=== PATIENT | female | born 1960 | race Caucasian/White ===

== ENCOUNTER 2017-07-08 14:41 | Observation (INO) | payer BC ==
[~2017-07-08] VITALS: Ht 160 cm; Wt 86.8 kg
[2017-07-08] MEDS ORDERED: IOHEXOL 350 MG/ML 10 ML VIAL (for RAD DIAG) IVCONTRAST ONE (14:42)
[2017-07-08 14:51] VITALS: BP 182/95; PULSE 77; RESP 20; TEMP 97.4; O2SAT 99
--- NOTE | 2017-07-08 15:50 | RADRPT ---
EXAM DATE/TIME: 07/08/2017 15:41 [facility] COMPARISON: No previous studies available for comparison. INDICATIONS : Chest pain. MEDICAL HISTORY : Carcinoma, breast. SURGICAL HISTORY : Mastectomy, bilateral. ENCOUNTER: Initial ACUITY: 1 day PAIN SCORE: 10/10 LOCATION: Bilateral chest FINDINGS: PA and lateral views of the chest demonstrate the lungs to be symmetrically aerated without evidence of mass, infiltrate or effusion. The cardiomediastinal contours are unremarkable. Osseous structure s are intact. Postsurgical changes each breast. CONCLUSION: No acute disease. Venakt Barroso MD on July 08, 2017 at 15:48 Board Certified Radiologist. This report was verified electronically.
[2017-07-08 15:53] LABS: AUTOMATED NEUTROPHIL # 12.4 TH/MM3 (1.8-7.7); BASOPHIL % 0.1 % (0.0-2.0); HEMATOCRIT 38.3 % (35.0-46.0); HEMOGLOBIN 13.1 GM/DL (11.6-15.3); LYMPH % 3.2 % (9.0-44.0); LYMPHOCYTE # 0.4 TH/MM3 (1.0-4.8); MEAN CORPUSCULAR HEMOGLOBIN 31.1 PG (27.0-34.0); MEAN CORPUSCULAR HGB CONC 34.2 % (32.0-36.0); MEAN PLATELET VOLUME 8.7 FL (7.0-11.0); MONO % 7.7 % (0.0-8.0); MONOCYTE # 1.1 TH/MM3 (0-0.9); PLATELET COUNT 233 TH/MM3 (150-450); RED BLOOD COUNT 4.21 MIL/MM3 (4.00-5.30); RED CELL DISTRIBUTION WIDTH 12.3 % (11.6-17.2); WHITE BLOOD COUNT 13.9 TH/MM3 (4.0-11.0)
[2017-07-08 16:03] LABS: BICARBONATE 28.7 MEQ/L (21.0-32.0); BLOOD UREA NITROGEN 11 MG/DL (7-18); CALCIUM 9.7 MG/DL (8.5-10.1); CHLORIDE 104 MEQ/L (98-107); CREATININE 0.66 MG/DL (0.50-1.00); GLOMERULAR FILTRATION RATE 93 ML/MIN (>89); GLUCOSE,RANDOM 114 MG/DL (74-106); MAGNESIUM 2.1 MG/DL (1.5-2.5); SODIUM (NA) 140 MEQ/L (136-145)
[2017-07-08 16:06] LABS: INTERNATIONAL NORMALIZED RATIO 0.9 RATIO; PROTHROMBIN TIME - PATIENT 9.3 SEC (9.8-11.6)
[2017-07-08 16:08] LABS: TROPONIN I LESS THAN 0.02 NG/ML (0.02-0.05)
[2017-07-08] MEDS ORDERED: MEDR4PAK PO (16:27)
[2017-07-08] MEDS ORDERED: LORA0.5T PO (16:27)
--- NOTE | 2017-07-08 16:56 | PD ---
HPI Chief Complaint: Pain: Acute or Chronic Time Seen by Provider: 16:44 Travel History International Travel<30 days: No Contact w/Intl Traveler<30days: No Traveled to known affect area: No History of Present Illness HPI This is a 56-year-old female with history of breast cancer status post bilateral mastectomy in February 2017, begin radiation treatments a few weeks ago, had her 18th treatment yesterday, presents for evaluation. She reports that she developed pain in her right axilla 3 days ago which she describes as a stabbing pain. The pain radiates in the middle of her chest which describes it as a pressure. Pain is worse with movement. She denies nausea or vomiting, shortness of breath, cough congestion, fevers or chills. Her oncologist is Dr. Araujo. No other complaints. PFSH Past Medical History Autoimmune Disease: No Blood Disorders: No Cancer: Yes (breast) Psychiatric: No Influenza Vaccination: Yes Past Surgical History AICD: No Genitourinary Surgery: No Hysterectomy: Yes Pacemaker: No Other Surgery: Yes (bilat mastectomy) Social History Alcohol Use: Yes (socially) Tobacco Use: No Substance Use: No Allergies-Medications (Allergen,Severity, Reaction): Coded Allergies: Sulfa (Sulfonamide Antibiotics) (Unverified Allergy, Mild, 07/08/17) Reported Meds & Prescriptions Reported Meds & Active Scripts Active Reported Medrol Dosepak (Methylprednisolone) 4 Mg Dspk 4 Mg PO DIRECTED Per Pharmacist direction Lorazepam 0.5 Mg Tab 0.5 Mg PO BID PRN Review of Systems Except as stated in HPI: all other systems reviewed are Neg Physical Exam Narrative GENERAL: Well-developed well-nourished female no acute distress SKIN: Warm and dry. There is a large area of skin redness just medial to the right axilla which is quite tender to palpation. There is no fluctuance or drainage. HEAD: Atraumatic. Normocephalic. EYES: Pupils equal and round. No scleral icterus. No injection or drainage. ENT: No nasal bleeding or discharge. Mucous membranes pink and moist. NECK: Trachea midline. No JVD. CARDIOVASCULAR: Regular rate and rhythm. No murmur appreciated. RESPIRATORY: No accessory muscle use. Clear to auscultation. Breath sounds equal bilaterally. GASTROINTESTINAL: Abdomen soft, non-tender, nondistended. Hepatic and splenic margins not palpable. MUSCULOSKELETAL: No obvious deformities. No clubbing. No cyanosis. No edema. NEUROLOGICAL: Awake and alert. No obvious cranial nerve deficits. Motor grossly within normal limits. Normal speech. Data Data Last Documented VS Vital Signs Date Time Temp Pulse Resp B/P (MAP) Pulse Ox O2 Delivery O2 Flow Rate FiO2 07/08/17 14:51 97.4 77 20 182/95 (124) 99 Orders Orders Electrocardiogram (07/08/17 14:55) Basic Metabolic Panel (Bmp) (07/08/17 14:55) Ckmb (Isoenzyme) Profile (07/08/17 14:55) Complete Blood Count With Diff (07/08/17 14:55) Magnesium (Mg) (07/08/17 14:55) Prothrombin Time / Inr (Pt) (07/08/17 14:55) Act Partial Throm Time (Ptt) (07/08/17 14:55) Troponin I (07/08/17 14:55) Chest, Pa & Lat (07/08/17 14:55) CKMB (07/08/17 15:24) CKMB% (07/08/17 15:24) Iv Access Insert/Monitor (07/08/17 16:53) Ct Pulmonary Angiogram (07/08/17 16:53) Morphine Inj (Morphine Inj) (07/08/17 17:00) Ondansetron Inj (Zofran Inj) (07/08/17 17:00) Iohexol 350 Inj (Omnipaque 350 Inj) (07/08/17 14:42) Admit Order (Ed Use Only) (07/08/17 19:38) Labs Laboratory Tests Test 07/08/17 15:24 White Blood Count 13.9 TH/MM3 Red Blood Count 4.21 MIL/MM3 Hemoglobin 13.1 GM/DL Hematocrit 38.3 % Mean Corpuscular Volume 91.0 FL Mean Corpuscular Hemoglobin 31.1 PG Mean Corpuscular Hemoglobin Concent 34.2 % Red Cell Distribution Width 12.3 % Platelet Count 233 TH/MM3 Mean Platelet Volume 8.7 FL Neutrophils (%) (Auto) 89.0 % Lymphocytes (%) (Auto) 3.2 % Monocytes (%) (Auto) 7.7 % Eosinophils (%) (Auto) 0.0 % Basophils (%) (Auto) 0.1 % Neutrophils # (Auto) 12.4 TH/MM3 Lymphocytes # (Auto) 0.4 TH/MM3 Monocytes # (Auto) 1.1 TH/MM3 Eosinophils # (Auto) 0.0 TH/MM3 Basophils # (Auto) 0.0 TH/MM3 CBC Comment DIFF FINAL Differential Comment Prothrombin Time 9.3 SEC Prothromb Time International Ratio 0.9 RATIO Activated Partial Thromboplast Time 23.6 SEC Blood Urea Nitrogen 11 MG/DL Creatinine 0.66 MG/DL Random Glucose 114 MG/DL Calcium Level 9.7 MG/DL Magnesium Level 2.1 MG/DL Sodium Level 140 MEQ/L Potassium Level 3.8 MEQ/L Chloride Level 104 MEQ/L Carbon Dioxide Level 28.7 MEQ/L Anion Gap 7 MEQ/L Estimat Glomerular Filtration Rate 93 ML/MIN Total Creatine Kinase 118 U/L Creatine Kinase MB 1.6 NG/ML Troponin I LESS THAN 0.02 NG/ML MDM Medical Decision Making Medical Screen Exam Complete: Yes Emergency Medical Condition: Yes Medical Record Reviewed: Yes Differential Diagnosis Cellulitis, radiation induce chest wall pain, pulmonary embolism, acute coronary syndrome, radiation pneumonitis Narrative Course Patient was placed on ECG monitoring pulse oximetry. A 12-lead EKG was obtained revealing T-wave inversions in the anterior and lateral leads.lab work , chest x-ray, CT pulmonary angiogram have been ordered. CBC reveals a WBC count of 13.9, neutrophil percentage 89, BMP unremarkable, CK and troponin negative. CT pulmonary angiogram reveals no evidence for pulmonary embolus. There are enlarged right axillary lymphadenopathy. I placed a page out to the patient's oncologist Dr. Araujo however no callback was received. At this point in time, given the patient's EKG findings, the patient will be admitted for observation and serial cardiac enzymes. He did she does have leukocytosis and some redness with scant on the right anterior chest wall and axilla lymphadenopathy. This could be secondary to radiation versus cellulitis. She will be started on clindamycin. Diagnosis Primary Impression: Atypical chest pain Additional Impression: Leukocytosis Admitting Information Admitting Physician Requests: Observation Scripts Clindamycin (Clindamycin) 300 Mg Cap 300 MG PO TID for Infection for 7 Days, #21 CAP 0 Refills Prov: Jono Avila MD 07/10/17 Cephalexin (Keflex) 500 Mg Cap 500 MG PO Q8H for Infection, #30 CAP 0 Refills Prov: Mari Huerta [employer]/Nursing Tech [employer] 07/10/17 Justice Ordoñez Jul 08, 2017 16:56
[2017-07-08] MEDS ORDERED: ONDANSETRON HCL 4 MG/2 ML VIAL IV PUSH ONE (17:00)
[2017-07-08] MEDS ORDERED: MORPHINE SULFATE 4 MG/ML INJ IV PUSH ONE ×2 (17:00→20:00)
--- NOTE | 2017-07-08 18:25 | PD ---
Physical Exam Date Seen by Provider: Jul 08, 2017 Time Seen by Provider: 17:00 Narrative I, Dr. Guaman, have reviewed the advance practice practitioner's documentation and am in agreement, met with the patient face to face, made the diagnosis, and the medical decision making was done by me. *My assessment and Findings: Patient seen and evaluated with PA, please see PA notes for further details. Patient is here complaining of chest discomfort with radiation to the right axilla, breast cancer currently on radiation therapy. EKG shows normal sinus rhythm at a rate of 75 bpm. There are T-wave inversions notable in the lateral leads. No signs of acute ST elevations. Laboratory Tests Test 07/08/17 15:24 White Blood Count 13.9 TH/MM3 (4.0-11.0) Neutrophils (%) (Auto) 89.0 % (16.0-70.0) Lymphocytes (%) (Auto) 3.2 % (9.0-44.0) Neutrophils # (Auto) 12.4 TH/MM3 (1.8-7.7) Lymphocytes # (Auto) 0.4 TH/MM3 (1.0-4.8) Monocytes # (Auto) 1.1 TH/MM3 (0-0.9) Prothrombin Time 9.3 SEC (9.8-11.6) Activated Partial Thromboplast Time 23.6 SEC (24.3-30.1) Random Glucose 114 MG/DL (74-106) Troponin I LESS THAN 0.02 NG/ML Last 24 hours Impressions Chest X-Ray 07/08/17 1455 Signed Impressions: Service Date/Time: Saturday, July 08, 2017 15:41 - CONCLUSION: No acute disease. Venkat Barroso MD Cardiac enzymes are negative. Initial chest x-ray did not show any signs of acute pulmonary processes. She has an atypical chest pain and CTA was ordered especially considering her medical history for further evaluation of chest pains to rule out PE. It did not show any signs of PE. There is mild tenderness on palpation of the anterior chest wall and there is leukocytosis, and there is some concern here that there could be cellulitis. IV antibiotics were initiated. Planning to admit the case for further evaluation and treatment. Data Data Last Documented VS Vital Signs Date Time Temp Pulse Resp B/P (MAP) Pulse Ox O2 Delivery O2 Flow Rate FiO2 07/08/17 14:51 97.4 77 20 182/95 (124) 99 Orders Orders Electrocardiogram (07/08/17 14:55) Basic Metabolic Panel (Bmp) (07/08/17 14:55) Ckmb (Isoenzyme) Profile (07/08/17 14:55) Complete Blood Count With Diff (07/08/17 14:55) Magnesium (Mg) (07/08/17 14:55) Prothrombin Time / Inr (Pt) (07/08/17 14:55) Act Partial Throm Time (Ptt) (07/08/17 14:55) Troponin I (07/08/17 14:55) Chest, Pa & Lat (07/08/17 14:55) CKMB (07/08/17 15:24) CKMB% (07/08/17 15:24) Iv Access Insert/Monitor (07/08/17 16:53) Ct Pulmonary Angiogram (07/08/17 16:53) Morphine Inj (Morphine Inj) (07/08/17 17:00) Ondansetron Inj (Zofran Inj) (07/08/17 17:00) Iohexol 350 Inj (Omnipaque 350 Inj) (07/08/17 14:42) Labs Laboratory Tests Test 07/08/17 15:24 White Blood Count 13.9 TH/MM3 Red Blood Count 4.21 MIL/MM3 Hemoglobin 13.1 GM/DL Hematocrit 38.3 % Mean Corpuscular Volume 91.0 FL Mean Corpuscular Hemoglobin 31.1 PG Mean Corpuscular Hemoglobin Concent 34.2 % Red Cell Distribution Width 12.3 % Platelet Count 233 TH/MM3 Mean Platelet Volume 8.7 FL Neutrophils (%) (Auto) 89.0 % Lymphocytes (%) (Auto) 3.2 % Monocytes (%) (Auto) 7.7 % Eosinophils (%) (Auto) 0.0 % Basophils (%) (Auto) 0.1 % Neutrophils # (Auto) 12.4 TH/MM3 Lymphocytes # (Auto) 0.4 TH/MM3 Monocytes # (Auto) 1.1 TH/MM3 Eosinophils # (Auto) 0.0 TH/MM3 Basophils # (Auto) 0.0 TH/MM3 CBC Comment DIFF FINAL Differential Comment Prothrombin Time 9.3 SEC Prothromb Time International Ratio 0.9 RATIO Activated Partial Thromboplast Time 23.6 SEC Blood Urea Nitrogen 11 MG/DL Creatinine 0.66 MG/DL Random Glucose 114 MG/DL Calcium Level 9.7 MG/DL Magnesium Level 2.1 MG/DL Sodium Level 140 MEQ/L Potassium Level 3.8 MEQ/L Chloride Level 104 MEQ/L Carbon Dioxide Level 28.7 MEQ/L Anion Gap 7 MEQ/L Estimat Glomerular Filtration Rate 93 ML/MIN Total Creatine Kinase 118 U/L Creatine Kinase MB 1.6 NG/ML Troponin I LESS THAN 0.02 NG/ML [facility] Medical Record Reviewed: Yes Supervised Visit with ARMANDO: Yes Diagnosis Primary Impression: Atypical chest pain Additional Impression: Cellulitis of chest wall Admitting Information Admitting Physician Requests: Admit Tremayne Guaman MD Jul 08, 2017 18:25
--- NOTE | 2017-07-08 18:36 | RADRPT ---
EXAM DATE/TIME: 07/08/2017 18:16 [facility] COMPARISON: No previous studies available for comparison. INDICATIONS : Patient complains of pain in right arm and across chest. IV CONTRAST: 50 cc Omnipaque 350 (iohexol) IV RADIATION DOSE: 10.57 CTDIvol (mGy) MEDICAL HISTORY : Carcinoma, breast. SURGICAL HISTORY : Mastectomy, bilateral. Hysterectomy. ENCOUNTER: Initial ACUITY: 1 day PAIN SCALE: 6/10 LOCATION: chest TECHNIQUE: Volumetric scanning of the chest was performed using a pulmonary embolism protocol MIP images were re constructed. Using automated exposure control and adjustment of the mA and/or kV according to patien t size, radiation dose was kept as low as reasonably achievable to obtain optimal diagnostic quality images. DICOM format image data is available electronically for review and comparison. Follow-up recommendations for detected pulmonary nodules are based at a minimum on nodule size and pa tient risk factors according to Fleischner Society Guidelines. FINDINGS: PULMONARY ARTERIES: No filling defects are seen in the pulmonary arteries through the segmental level. LUNGS: There is no consolidation or pneumothorax . No concerning pulmonary nodule is visualized. PLEURAE: There is no pleural thickening or pleural effusion. MEDIASTINUM: There is good visualization of the great vessels of the middle mediastinum. No evidence of mediastin al or hilar adenopathy/mass. MUSCULOSKELETAL: Within normal limits for patient age. MISCELLANEOUS: The visualized upper abdominal organs demonstrate no acute abnormality. Large right axillary lymph no de measures 4.4 cm. CONCLUSION: 1. No evidence for pulmonary embolism. 2. Enlarged right axillary adenopathy Venkat Barroso MD on July 08, 2017 at 18:32 Board Certified Radiologist. This report was verified electronically.
[2017-07-08] MEDS ORDERED: CLINDAMYCIN 600 MG/NS PREMIX 50 ML IV ONE (20:00)
[2017-07-08] MEDS ORDERED: ASPIRIN 81 MG CHEW TAB PO ONE (20:00)
[2017-07-08 20:47] VITALS: BP 170/72; PULSE 96; RESP 16; O2SAT 96
[2017-07-08] MEDS ORDERED: NALOXONE HCL 0.4 MG/ML AMP IV PUSH PRN (21:15)
[2017-07-08] MEDS ORDERED: ONDANSETRON HCL 4 MG/2 ML VIAL IVP PRN (21:15)
[2017-07-08] MEDS ORDERED: SODIUM CHLORIDE 0.9% FLUSH 10 ML FLUSH IV FLUSH PRN (21:15)
[2017-07-08] MEDS ORDERED: BISACODYL 10 MG SUPP RECTAL PRN (21:15)
[2017-07-08] MEDS ORDERED: MAGNESIUM HYDROXIDE SUSP 30 ML CUP PO PRN (21:15)
[2017-07-08] MEDS ORDERED: SENNOSIDES 8.6 MG TAB PO PRN (21:15)
[2017-07-08] MEDS ORDERED: LACTULOSE SYRUP 20 GM/30 ML CUP PO PRN (21:15)
[2017-07-08] MEDS ORDERED: MORPHINE SULFATE 4 MG/ML INJ IV PUSH PRN (21:15)
[2017-07-08] MEDS: SODIUM CHLOR 0.9% 1000 ML INJ 1,000 ML IV SCH (22:12)
[2017-07-08] MEDS: HEPARIN SODIUM - SQ 10,000 UNITS/ML VIAL SQ SCH (22:24)
--- NOTE | 2017-07-08 22:37 | HHI.HP ---
[facility] Physician Kirk Frankel M.D. Admission Diagnosis Chest pain, leukocytosis Diagnoses: Travel History International Travel<30 Days: No Contact w/Intl Traveler <30 Da: No Traveled to Known Affected Are: No History of Present Illness 56-year-old female with a past medical history significant for hypertension and breast cancer with lymph node involvement presents to the emergency department for evaluation of her right armpit and chest pain. The patient is currently undergoing radiation treatment and completed #19 yesterday. She reports that starting Friday evening she had pain in her right armpit that radiated to her mid chest. She endorses increased fatigue. She states that yesterday the pain worsened and felt like a pressure. She endorses accompanying shortness of breath. States she is having severe pain on the right side of her chest and in her armpit and her skin has turned erythematous and is exquisitely tender to palpation. She endorses 2 days of fever/chills. No abdominal pain. No nausea/ vomiting/diarrhea. No lateralizing signs/symptoms. Review of Systems Except as stated in HPI: all other systems reviewed are Neg Past Family Social History Past Medical History Hypertension Breast cancer Past Surgical History Bilateral mastectomy Hysterectomy Left hand surgery Reported Medications Reported Meds & Active Scripts Active Reported Medrol Dosepak (Methylprednisolone) 4 Mg Dspk 4 Mg PO DIRECTED Per Pharmacist direction Lorazepam 0.5 Mg Tab 0.5 Mg PO BID PRN Allergies: Coded Allergies: Sulfa (Sulfonamide Antibiotics) (Unverified Allergy, Mild, 07/08/17) Family History Mother with CAD Social History Occasional alcohol. Denies tobacco/illicit drugs. Physical Exam Vital Signs Vital Signs Date Time Temp Pulse Resp B/P (MAP) Pulse Ox O2 Delivery O2 Flow Rate FiO2 07/08/17 20:47 96 16 170/72 (104) 96 Room Air 07/08/17 14:51 97.4 77 20 182/95 (124) 99 Physical Exam GENERAL: female sitting up in bed SKIN: Erythema surrounding right axilla and right chest that is warm to the touch. No areas of fluctuance or induration. No drainage. HEAD: Atraumatic. Normocephalic. No temporal or scalp tenderness. EYES: Pupils equal round and reactive. Extraocular motions intact. No scleral icterus. No injection or drainage. ENT: Nose without bleeding, purulent drainage or septal hematoma. Throat without erythema, tonsillar hypertrophy or exudate. Uvula midline. Airway patent. NECK: Trachea midline. No JVD or lymphadenopathy. Supple, nontender, no meningeal signs. CARDIOVASCULAR: Regular rate and rhythm without murmurs, gallops, or rubs. RESPIRATORY: Clear to auscultation. Breath sounds equal bilaterally. No wheezes , rales, or rhonchi. GASTROINTESTINAL: Abdomen soft, non-tender, nondistended. No hepato-splenomegaly , or palpable masses. No guarding. MUSCULOSKELETAL: Extremities without clubbing, cyanosis, or edema. No joint tenderness, effusion, or edema noted. No calf tenderness. NEUROLOGICAL: Awake and alert. Cranial nerves II through XII intact. Motor and sensory grossly within normal limits. Normal speech. Laboratory Laboratory Tests Test 07/08/17 15:24 White Blood Count 13.9 Red Blood Count 4.21 Hemoglobin 13.1 Hematocrit 38.3 Mean Corpuscular Volume 91.0 Mean Corpuscular Hemoglobin 31.1 Mean Corpuscular Hemoglobin Concent 34.2 Red Cell Distribution Width 12.3 Platelet Count 233 Mean Platelet Volume 8.7 Neutrophils (%) (Auto) 89.0 Lymphocytes (%) (Auto) 3.2 Monocytes (%) (Auto) 7.7 Eosinophils (%) (Auto) 0.0 Basophils (%) (Auto) 0.1 Neutrophils # (Auto) 12.4 Lymphocytes # (Auto) 0.4 Monocytes # (Auto) 1.1 Eosinophils # (Auto) 0.0 Basophils # (Auto) 0.0 CBC Comment DIFF FINAL Differential Comment Prothrombin Time 9.3 Prothromb Time International Ratio 0.9 Activated Partial Thromboplast Time 23.6 Blood Urea Nitrogen 11 Creatinine 0.66 Random Glucose 114 Calcium Level 9.7 Magnesium Level 2.1 Sodium Level 140 Potassium Level 3.8 Chloride Level 104 Carbon Dioxide Level 28.7 Anion Gap 7 Estimat Glomerular Filtration Rate 93 Total Creatine Kinase 118 Creatine Kinase MB 1.6 Troponin I LESS THAN 0.02 Result Diagram: 07/08/17 1524 07/08/17 1524 Caprini VTE Risk Assessment Caprini VTE Risk Assessment: Mod/High Risk (score >= 2) Caprini Risk Assessment Model Point Value = 1 Point Value = 2 Point Value = 3 Point Value = 5 Age 41-60 Minor surgery BMI > 25 kg/m2 Swollen legs Varicose veins or History of unexplained or recurrent spontaneous Oral contraceptives or hormone replacement Sepsis (< 1 month) Serious lung disease, including pneumonia (< 1 month) Abnormal pulmonary function Acute myocardial infarction Congestive heart failure (< 1 month) History of inflammatory bowel disease Medical patient at bed rest Age 61-74 Arthroscopic surgery Major open surgery (> 45 min) Laparoscopic surgery (> 45 min) Malignancy Confined to bed (> 72 hours) Immobilizing plaster cast Central venous access Age >= 75 History of VTE Family history of VTE Factor V Leiden Prothrombin [id number] Lupus anticoagulant Anticardiolipin antibodies Elevated serum homocysteine Heparin-induced thrombocytopenia Other congenital or acquired thrombophilia Stroke (< 1 month) Elective arthroplasty Hip, pelvis, or leg fracture Acute spinal cord injury (< 1 month) Prophylaxis Regimen Total Risk Factor Score Risk Level Prophylaxis Regimen 0-1 Low Early ambulation 2 Moderate Order ONE of the following: *Sequential Compression Device (SCD) *Heparin 5000 units SQ BID 3-4 Higher Order ONE of the following medications: *Heparin 5000 units SQ TID *Enoxaparin/Lovenox 40 mg SQ daily (WT < 150 kg, CrCl > 30 mL/min) *Enoxaparin/Lovenox 30 mg SQ daily (WT < 150 kg, CrCl > 10-29 mL/min) *Enoxaparin/Lovenox 30 mg SQ BID (WT < 150 kg, CrCl > 30 mL/min) AND/OR *Sequential Compression Device (SCD) 5 or more Highest Order ONE of the following medications: *Heparin 5000 units SQ TID (Preferred with Epidurals) *Enoxaparin/Lovenox 40 mg SQ daily (WT < 150 kg, CrCl > 30 mL/min) *Enoxaparin/Lovenox 30 mg SQ daily (WT < 150 kg, CrCl > 10-29 mL/min) *Enoxaparin/Lovenox 30 mg SQ BID (WT < 150 kg, CrCl > 30 mL/min) AND *Sequential Compression Device (SCD) Assessment and Plan Assessment and Plan Assessment/plan: 1. Chest pain Initial troponin negative EKG significant for T-wave inversions in the anterior and lateral leads, no previous for comparison, personally reviewed ACS rule out pending; serial troponins/EKGs Morphine 2. Right axilla/chest cellulitis Patient with leukocytosis with left shift and subjective fever/chills Clindamycin IV 3. Breast cancer Patient currently undergoing radiation therapy Medical oncology, Dr. Araujo consulted, appreciate assistance 4. Hypertension Patient not currently on any antihypertensives Monitor blood pressure FEN NPO NS at 100 cc/hr Electrolytes: monitor and replete prn Heparin Mary Edwards MD Jul 08, 2017 22:37
[2017-07-09] MEDS: LORazepam 0.5 MG TAB PO PRN ×2 (00:03→22:59)
[2017-07-09] MEDS: CLINDAMYCIN INJ 600 MG in SODIUM CHLORIDE 0.9% INJ 100 ML IV SCH ×4 (03:43→22:58)
[2017-07-09 03:50] VITALS: BP 132/74; PULSE 76; RESP 18; TEMP 98.2
[2017-07-09 03:56] LABS: AUTOMATED NEUTROPHIL # 7.5 TH/MM3 (1.8-7.7); BASOPHIL % 0.3 % (0.0-2.0); EOSINOPHIL # 0.1 TH/MM3 (0-0.4); EOSINOPHIL % 0.8 % (0.0-4.0); HEMATOCRIT 32.5 % (35.0-46.0); HEMOGLOBIN 11.6 GM/DL (11.6-15.3); LYMPH % 11.1 % (9.0-44.0); LYMPHOCYTE # 1.1 TH/MM3 (1.0-4.8); MEAN CELL VOLUME 89.5 FL (80.0-100.0); MEAN CORPUSCULAR HEMOGLOBIN 31.9 PG (27.0-34.0); MEAN CORPUSCULAR HGB CONC 35.7 % (32.0-36.0); MEAN PLATELET VOLUME 8.4 FL (7.0-11.0); MONO % 9.1 % (0.0-8.0); MONOCYTE # 0.9 TH/MM3 (0-0.9); NEUT % 78.7 % (16.0-70.0); PLATELET COUNT 198 TH/MM3 (150-450); RED BLOOD COUNT 3.63 MIL/MM3 (4.00-5.30); RED CELL DISTRIBUTION WIDTH 12.4 % (11.6-17.2); WHITE BLOOD COUNT 9.5 TH/MM3 (4.0-11.0)
[2017-07-09 04:21] LABS: BICARBONATE 29.8 MEQ/L (21.0-32.0); BLOOD UREA NITROGEN 15 MG/DL (7-18); CALCIUM 8.9 MG/DL (8.5-10.1); CHLORIDE 108 MEQ/L (98-107); CREATININE 0.68 MG/DL (0.50-1.00); GLOMERULAR FILTRATION RATE 90 ML/MIN (>89); GLUCOSE,RANDOM 125 MG/DL (74-106); SODIUM (NA) 144 MEQ/L (136-145)
[2017-07-09 04:24] LABS: TROPONIN I LESS THAN 0.02 NG/ML (0.02-0.05)
[2017-07-09] MEDS: HEPARIN SODIUM - SQ 10,000 UNITS/ML VIAL SQ SCH ×3 (05:19→22:59)
[2017-07-09 07:22] VITALS: BP 169/75; PULSE 67; RESP 18; TEMP 97.9; O2SAT 98
--- NOTE | 2017-07-09 09:25 | MB ---
cc: Geovany Araujo MD DATE: 07/09/2017 CHIEF COMPLAINT: 1. History of breast cancer, undergoing radiation therapy. 2. Pain, right chest wall and pain right axilla. PATIENT PROFILE: The patient is a 56-year-old female. She is . She has no children. She was born in [place], [place], and has lived in [place] since 1979. Alcohol consists of about 2 drinks per day several times a week. There has been very minimal tobacco exposure in the past. She enjoys yard work, her bicycle and travel. HISTORY OF PRESENT ILLNESS: The patient is a 56-year-old female who was found to have an abnormality of the right breast on a routine mammogram which led to a needle biopsy of the right breast on 02/07/2017. She was found to have invasive ductal carcinoma, ER 79%, FL 72%, HER2/yuan negative. She had bilateral mastectomies performed by Dr. Nathaniel Winchester on 03/10/2017. The right breast contained residual invasive carcinoma measuring 6 mm; 2/5 lymph nodes were positive. One lymph node measured 5 mm and had extranodal extension. The other measured less than 5 mm. The margins of resection were negative. The left breast contained no cancer. The patient had a PET scan, which showed no evidence of metastatic disease. I saw her in consultation and had recommended adjuvant chemotherapy and hormonal therapy. She had a MammaPrint assay and, after she reviewed the information provided, she decided she did not want to have chemotherapy and indicated that she would have hormonal therapy, but not chemotherapy. She saw Dr. Valladares who is a radiation oncologist and has received 19 treatments of approximately 30 planned treatments. Over the past several days, she has had increasing pain in the right chest wall with the epicenter appearing to be in the right axilla. She went to the emergency room because of the severity of the pain. I have been consulted to see her. She has undergone a number of studies. She had a CT angiogram. there is no evidence of a pulmonary embolus. She has a right axillary lymph node which is very obvious measuring 4.4 cm. It is round and discrete. Other studies include a hemoglobin of 11.6, white count 9500, platelets 198,000. Electrolytes, BUN and creatinine unremarkable. Troponin is less than 0.02. She has been started on an antibiotic, Cleocin. PAST SURGICAL HISTORY: 1. 03/10/2017: Bilateral mastectomies by Dr. Nathaniel Winchester. Right breast contained invasive ductal carcinoma, 6 mm, 2 of 5 lymph nodes positive. Final pathologic stage felt to be either T1b or T1c, N1 M0 due to the 2 of 5 positive lymph nodes; ER positive, FL positive, HER2/yuan negative. 2. Partial hysterectomy in 1999. Ovaries remain. 3. Colonoscopy in 1992 with identifying benign polyps. 4. Wrist surgery in 2002. PAST MEDICAL HISTORY: 1. Carcinoma of the right breast, pathologic T1b or T1c, N1 M0. 2. Mild anxiety. ALLERGIES: SULFA ANTIBIOTICS. FAMILY HISTORY: Mrs. Quinteros's parents are . Father had black lung disease from mining and developed cancer of the stomach. Mother of a cerebral aneurysm. Her sister had several melanomas removed from the skin, but has no metastatic disease and had a vaginal cancer treated with surgery. REVIEW OF SYSTEMS: CONSTITUTIONAL: Fatigue, worried and painful. HEENT: No change in vision, occasional ringing in ears. CHEST: She has chest discomfort primarily over the right anterior chest, sometimes extending over the left side. LYMPHATICS: She has pain in the left axilla with swelling. She has had bilateral mastectomies. She has no shortness of breath. She has no exertional chest pain. No abdominal or pelvic pain. No dysuria, frequency or hematuria. No joint pain. SKIN: Notable for slight minimal erythema over the right chest area and dry skin. NEUROLOGIC: No focal weakness. PSYCHIATRIC: Notable for anxiety. PHYSICAL EXAMINATION: GENERAL: Reveals a female, who appears uncomfortable. She is anxious. VITAL SIGNS: Blood pressure 170/70, respiratory rate 18, pulse 70, afebrile. O2 saturation is 98 percent. HEENT: Head is normocephalic. Sclerae and conjunctivae are normal. Oropharynx unremarkable. BREASTS: She has had bilateral mastectomies. There is minimal erythema over the right chest wall with dry skin. This is not an overt cellulitis. HEART: Regular rhythm. LUNGS: Clear. CHEST WALL: Shows slight dryness of the skin. Towards the right axilla there is fluid. Examination of the lymphatics reveals a 4-5 cm exquisitely tender lymph node in the right axilla. ABDOMEN: Soft. No hepatosplenomegaly. EXTREMITIES: No edema or swelling. MUSCULOSKELETAL: No bone pain other than the exquisite tenderness in the right axilla. NEUROLOGIC: No focal weakness. PSYCHIATRIC: Anxiety. ASSESSMENT AND PLAN: The patient is a 56-year-old female status post bilateral mastectomies for a pathologic T1b or T1c, N1 M0, ER positive, HER2/yuan negative carcinoma of the right breast. She has received 2/3 of her radiation treatments. She now presents with several days of pain right chest wall and right axilla with an exquisitely painful, tender lymph node in the right axilla. This is not the presentation of malignancy. It would not surprise me if she has an infection. Given the size of the lymph node, she may require drainage. PLAN: 1. Consult Dr. Nathaniel Winchester, who is her surgeon, to evaluate the axillary node. 2. Would continue antibiotic. 3. Radiation should be held at the moment until there is further clarification, but will defer this ultimately to the radiation oncologist. When she has completed her radiation, she will go on to an aromatase inhibitor, which she will take for a minimum of 5 years. I do not see anything to suggest that her immediate problem is related to her malignancy and suspect it is due to the consequences of treatment. The above has been discussed with Dr. Ahumada who is the hospitalist and I also placed a call and left a message on Dr. Nathaniel Winchester's phone. MD SAMMI Cota/MARGARET , 08:49 AM , 09:24 AM [facility]
[2017-07-09] MEDS: SODIUM CHLOR 0.9% 1000 ML INJ 1,000 ML IV SCH (09:38)
[2017-07-09] MEDS: SODIUM CHLORIDE 0.9% FLUSH 10 ML FLUSH IV FLUSH SCH ×2 (09:38→22:58)
[2017-07-09] MEDS: DOCUSATE SODIUM 50 MG/SENNA 8.6 MG TAB PO SCH ×2 (09:39→22:58)
--- NOTE | 2017-07-09 10:17 | HHI.PR ---
Subjective Remarks in no acute distress. afebrile. still with some pain to the right axilla. Objective Vitals Vital Signs Date Time Temp Pulse Resp B/P (MAP) Pulse Ox O2 Delivery O2 Flow Rate FiO2 07/09/17 07:22 97.9 67 18 169/75 (106) 98 07/09/17 03:50 98.2 76 18 132/74 (93) 07/08/17 20:47 96 16 170/72 (104) 96 Room Air 07/08/17 14:51 97.4 77 20 182/95 (124) 99 Result Diagram: 07/09/17 0340 07/09/17 [address] Angiography 07/08/17 1653 Signed Impressions: Service Date/Time: Saturday, July 08, 2017 18:16 - CONCLUSION: 1. No evidence for pulmonary embolism. 2. Enlarged right axillary adenopathy Venkat Barroso MD Chest X-Ray 07/08/17 1455 Signed Impressions: Service Date/Time: Saturday, July 08, 2017 15:41 - CONCLUSION: No acute disease. Venkat Barroso MD Objective Remarks GENERAL: This is a well-nourished, well-developed patient, in no apparent distress. CARDIOVASCULAR: Regular rate and regular rhythm without murmurs, gallops, or rubs. RESPIRATORY: Clear to auscultation. Breath sounds equal bilaterally. No wheezes , rales, or rhonchi. GASTROINTESTINAL: Abdomen soft, non-tender, nondistended. Normal, active bowel sounds MUSCULOSKELETAL: Extremities without clubbing, cyanosis, or edema. NEURO: Alert & Oriented x4 to person, place, time, situation. Moves all ext x4 skin; erythema of the right axilla. Medications and IVs Inpatient Medications Acetaminophen (Tylenol) 650 mg Q4H PRN PO TEMP > 100.4; Start 07/08/17 at 21:15 Aspirin (Aspirin Chew) 324 mg ONCE ONCE PO Last administered on 07/08/17at 20: 52; Start 07/08/17 at 20:00; Stop 07/08/17 at 20:01; Status DC Bisacodyl (Dulcolax Supp) 10 mg DAILY PRN RECTAL SEVERE CONSITIPATION / IF NPO ; Start 07/08/17 at 21:15 Clindamycin Phosphate 600 mg/ Sodium Chloride 104 ml @ 100 mls/hr Q6H IV Last administered on 07/09/17 09:38; Start 07/09/17 at 03:00 Clindamycin/ Sodium Chloride 50 ml @ 100 mls/hr ONCE ONCE IV Last administered on 07/08/17at 22:08; Start 07/08/17 at 20:00; Stop 07/08/17 at 20:29 ; Status DC Heparin Sodium (Porcine) (Heparin Inj) 5,000 units Q8H SQ Last administered on 07/09/17at 05:19; Start 07/08/17 at 21:15 Lactulose (Lactulose Liq) 30 ml DAILY PRN PO SEVERE CONSITIPATION/ IF PO; Start 07/08/17 at 21:15 Lorazepam (Ativan) 0.5 mg BID PRN PO ANXIETY AND/OR INSOMNIA Last administered on 07/09/17 00:03; Start 07/08/17 at 21:15 Magnesium Hydroxide (Milk Of Magnesia Liq) 30 ml Q12H PRN PO Mild constipation ; Start 07/08/17 at 21:15 Morphine Sulfate (Morphine Inj) 4 mg Q3H PRN IV PUSH pain > 4; Start 07/08/17 at 21:15 Naloxone HCl (Narcan Inj) 0.4 mg UNSCH PRN IV PUSH SEE LABEL COMMENTS; Start at 21:15 Ondansetron HCl (Zofran Inj) 4 mg Q6H PRN IVP NAUSEA OR VOMITING; Start at 21:15 Senna/Docusate Sodium (Azalea-Colace) 1 tab BID PO Last administered on at 09:39; Start 07/09/17 at 09:00 Sennosides (Senokot) 17.2 mg Q12H PRN PO Moderate constipation; Start 07/08/17 at 21:15 Sodium Chloride (NS Flush) 2 ml BID IV FLUSH Last administered on 07/09/17at 09: 38; Start 07/09/17 at 09:00 A/P Assessment and Plan 1. Chest pain troponin negative. 2. Right axilla/chest cellulitis Patient with leukocytosis with left shift and subjective fever/chills continue Clindamycin IV- surgery consulted. 3. Breast cancer Patient currently undergoing radiation therapy Medical oncology, Dr. Araujo consulted, appreciate assistance 4. Hypertension Patient not currently on any antihypertensives Monitor blood pressure Discharge Planning surgery consulted. not ready for dc. d/w . Damian Ahumada MD Jul 09, 2017 10:17
[2017-07-09 11:17] VITALS: BP 170/69; PULSE 74; RESP 18; TEMP 98.2; O2SAT 98
--- NOTE | 2017-07-09 11:58 | PD.CONS ---
cc: Nathaniel Winchester MD HPI Service General Surgery Consult Requested By Dr. Araujo Reason for Consult RIGHT enlarged and painful lymph node Primary Care Physician Kirk Frankel M.D. History of Present Illness This is a 56 year old female with a past medical history of hypertension and breast cancer who presented to the ED after she arrived for radiation yesterday and her RIGHT axillary was enlarged and painful. The patient reports that she developed the pain and swelling on Friday. She reports associated shortness of breath. She states that it is very difficult for her to get out of bed secondary to the pain. A CT angiogram of the chest was done in the ED and shows no pulmonary embolism but does visualize an enlarged RIGHT axillary lymph node. On admission she had a mildly elevated WBC at 13.9 but now is 9.5. She was started on Clindamycin. A General Surgery consultation has been requested. Review of Systems Constitutional: DENIES: Fatigue, Fever, Chills, Change in appetite Endocrine: DENIES: Polydipsia, Polyuria, Polyphagia Eyes: DENIES: Diplopia, Eye inflammation Ears, nose, mouth, throat: DENIES: Hearing loss Respiratory: DENIES: Apneas Cardiovascular: COMPLAINS OF: Chest pain, Dyspnea on Exertion, DENIES: Lower Extremity Edema Gastrointestinal: COMPLAINS OF: Abdominal pain, DENIES: Nausea, Vomiting Genitourinary: DENIES: Urinary frequency Musculoskeletal: DENIES: Joint pain Integumentary: DENIES: Abnormal pigmentation Hematologic/lymphatic: DENIES: Bruising Immunologic/allergic: DENIES: Eczema Neurologic: DENIES: Headache, Localized weakness Psychiatric: DENIES: Confusion, Mood changes, Depression Past Family Social History Past Medical History Hypertension Breast cancer Past Surgical History Bilateral mastectomy [place] [address] Winchester Hysterectomy LEFT hand surgery Reported Medications Lorazepam Medrol taper pack Allergies: Coded Allergies: Sulfa (Sulfonamide Antibiotics) (Unverified Allergy, Mild, 07/08/17) Active Ordered Medications Current Medications Medications (Trade) Dose Ordered Sig/Christina Route Start Time Stop Time Status Last Admin Clindamycin Phosphate 600 mg/ Sodium Chloride 104 ml @ 100 mls/hr Q6H IV 07/09/17 03:00 07/09/17 09:38 (Morphine Inj) 4 mg Q3H PRN IV PUSH 07/08/17 21:15 Sodium Chloride 1,000 ml @ 100 mls/hr Q10H IV 07/08/17 21:04 07/09/17 09:38 (NS Flush) 2 ml UNSCH PRN IV FLUSH 07/08/17 21:15 (NS Flush) 2 ml BID IV FLUSH 07/09/17 09:00 07/09/17 09:38 (Tylenol) 650 mg Q4H PRN PO 07/08/17 21:15 (Zofran Inj) 4 mg Q6H PRN IVP 07/08/17 21:15 (Heparin Inj) 5,000 units Q8H SQ 07/08/17 21:15 07/09/17 05:19 (Narcan Inj) 0.4 mg UNSCH PRN IV PUSH 07/08/17 21:15 (Azalea-Colace) 1 tab BID PO 07/09/17 09:00 07/09/17 09:39 (Milk Of Magnesia Liq) 30 ml Q12H PRN PO 07/08/17 21:15 (Senokot) 17.2 mg Q12H PRN PO 07/08/17 21:15 (Dulcolax Supp) 10 mg DAILY PRN RECTAL 07/08/17 21:15 (Lactulose Liq) 30 ml DAILY PRN PO 07/08/17 21:15 (Ativan) 0.5 mg BID PRN PO 07/08/17 21:15 07/09/17 00:03 Family History Extensive family history of cancer on her paternal side includes breast cancer, lung, brain and pancreatic cancer Social History Denies tobacco use Occasional ETOH use Denies illicit drug use She lives here locally with her . Physical Exam Vital Signs Vital Signs Date Time Temp Pulse Resp B/P (MAP) Pulse Ox O2 Delivery O2 Flow Rate FiO2 07/09/17 11:17 98.2 74 18 170/69 (102) 98 07/09/17 07:22 97.9 67 18 169/75 (106) 98 07/09/17 03:50 98.2 76 18 132/74 (93) 07/08/17 20:47 96 16 170/72 (104) 96 Room Air 07/08/17 14:51 97.4 77 20 182/95 (124) 99 Physical Exam GENERAL: Very pleasant 56 year old female just finishing up breakfast resting in bed. SKIN: Well healed bilateral mastectomy incisions; extremely tender area with some mildly erythema superior to mastectomy scar; no drainage; skin dry. HEAD: Atraumatic. Normocephalic. EYES: Pupils equal and round. No scleral icterus. No injection or drainage. ENT: No nasal bleeding or discharge. Mucous membranes pink and moist. NECK: Trachea midline. CARDIOVASCULAR: Regular rate and rhythm. RESPIRATORY: No accessory muscle use. Clear to auscultation. Breath sounds equal bilaterally. GASTROINTESTINAL: Abdomen soft, non tender; non distended. MUSCULOSKELETAL: Extremities without clubbing, cyanosis, or edema. No obvious deformities. NEUROLOGICAL: Awake and alert. No obvious cranial nerve deficits. Motor grossly within normal limits. Five out of 5 muscle strength in the arms and legs. Normal speech. PSYCHIATRIC: Appropriate mood and affect; insight and judgment normal. Laboratory Laboratory Tests Test 07/08/17 15:24 07/09/17 03:40 White Blood Count 13.9 9.5 Red Blood Count 4.21 3.63 Hemoglobin 13.1 11.6 Hematocrit 38.3 32.5 Mean Corpuscular Volume 91.0 89.5 Mean Corpuscular Hemoglobin 31.1 31.9 Mean Corpuscular Hemoglobin Concent 34.2 35.7 Red Cell Distribution Width 12.3 12.4 Platelet Count 233 198 Mean Platelet Volume 8.7 8.4 Neutrophils (%) (Auto) 89.0 78.7 Lymphocytes (%) (Auto) 3.2 11.1 Monocytes (%) (Auto) 7.7 9.1 Eosinophils (%) (Auto) 0.0 0.8 Basophils (%) (Auto) 0.1 0.3 Neutrophils # (Auto) 12.4 7.5 Lymphocytes # (Auto) 0.4 1.1 Monocytes # (Auto) 1.1 0.9 Eosinophils # (Auto) 0.0 0.1 Basophils # (Auto) 0.0 0.0 CBC Comment DIFF FINAL DIFF FINAL Differential Comment Prothrombin Time 9.3 Prothromb Time International Ratio 0.9 Activated Partial Thromboplast Time 23.6 Blood Urea Nitrogen 11 15 Creatinine 0.66 0.68 Random Glucose 114 125 Calcium Level 9.7 8.9 Magnesium Level 2.1 Sodium Level 140 144 Potassium Level 3.8 3.8 Chloride Level 104 108 Carbon Dioxide Level 28.7 29.8 Anion Gap 7 6 Estimat Glomerular Filtration Rate 93 90 Total Creatine Kinase 118 82 Creatine Kinase MB 1.6 Troponin I LESS THAN 0.02 LESS THAN 0.02 Result Diagram: 07/09/17 0340 07/09/17 0340 Imaging Last [address] Angiography 07/08/17 1653 Signed Impressions: Service Date/Time: Saturday, July 08, 2017 18:16 - CONCLUSION: 1. No evidence for pulmonary embolism. 2. Enlarged right axillary adenopathy Venkat Barroso MD Chest X-Ray 07/08/17 1455 Signed Impressions: Service Date/Time: Saturday, July 08, 2017 15:41 - CONCLUSION: No acute disease. Venkat Barroso MD Assessment and Plan Assessment and Plan 56 year old female with breast cancer; s/p bilateral mastectomy in Feb 2017; RIGHT axillary tenderness and pain -Continue Clindamycin -Regular diet -DC IVF -Pain control -Continue to monitor area; at this time no area of palpable fluid collection -No acute surgical plans at this time -Thank you for this consult; We will continue to follow Discussed Condition With Dr. Ranulfo Quinteros Attending Statement I personally evaluated the patient in . She developed pain and swelling, redness over the weekend. Had RT Friday, did not do RT Friday. Tender in fat pad superior to lateral mastectomy incision. Mild erythema present. No fluctuant mass on exam. CTA chest showed no PE, a 4 cm axillary lymph node and mild residual edema, but no fluid collection that appears drainable. Pt also has muscular chest wall tenderness. Mild cellulitis during RT R chest wall. Enlarged axillary lymph node, ? reactive or less likely malignant. The exam, history, and the medical decision-making described in the above note were completed with the assistance of the mid-level provider. I reviewed and agree with the findings presented. I attest that I had a [id number] encounter with the patient on the same day, and personally performed and documented my assessment and findings in the medical record. Mari Huerta/Fleet Administrator ODALIS Jul 09, 2017 11:58 Nathaniel Winchester MD Jul 09, 2017 16:53
[2017-07-09 15:23] VITALS: BP 180/76; PULSE 84; RESP 18; TEMP 97; O2SAT 100
--- NOTE | 2017-07-09 22:34 | EKG ---
Date Performed: 07/08/2017 Time Performed: 21:57:40 PTAGE: 56 years EKG: Sinus rhythm MODERATE T-WAVE ABNORMALITY ABNORMAL ECG PREVIOUS TRACING : 07/08/2017 15.31 Since the previous tracing, no significant change noted DOCTOR: Ad Jones Interpretating Date/Time 07/09/2017 22:33:24
--- NOTE | 2017-07-09 22:54 | EKG ---
Date Performed: 07/08/2017 Time Performed: 15:31:09 PTAGE: 56 years EKG: Sinus rhythm MODERATE T-WAVE ABNORMALITY ABNORMAL ECG PREVIOUS TRACING : 07/02/2003 04.20 Compared to previous tracing, T wave changes more prominen t DOCTOR: Ad Jones Interpretating Date/Time 07/09/2017 22:54:06
[2017-07-09 23:36] VITALS: BP 147/70; PULSE 77; RESP 16; TEMP 98.1; O2SAT 96
[2017-07-10] VITALS (7 sets, daily range): BP systolic 144–167; BP diastolic 84–102; PULSE 71–83; RESP 16–18; TEMP 97.2–98.2; O2SAT 96–99
[2017-07-10] MEDS: ACETAMINOPHEN 325 MG TAB PO PRN ×2 (03:02→12:21)
[2017-07-10] MEDS: CLINDAMYCIN INJ 600 MG in SODIUM CHLORIDE 0.9% INJ 100 ML IV SCH ×2 (03:26→12:23)
[2017-07-10] MEDS: HEPARIN SODIUM - SQ 10,000 UNITS/ML VIAL SQ SCH ×2 (05:13→14:08)
[2017-07-10] MEDS: DOCUSATE SODIUM 50 MG/SENNA 8.6 MG TAB PO SCH (09:00)
[2017-07-10] MEDS ORDERED: CEPH-460 PO (12:04)
[2017-07-10] MEDS: SODIUM CHLORIDE 0.9% FLUSH 10 ML FLUSH IV FLUSH SCH (12:24)
--- NOTE | 2017-07-10 12:29 | HHI.PR ---
cc: Nathaniel Winchester MD Subjective Subjective Notes Resting in bed Feeling better today Eager to get home Objective Vitals/I&O Vital Signs Date Time Temp Pulse Resp B/P (MAP) Pulse Ox O2 Delivery O2 Flow Rate FiO2 07/10/17 12:20 98.2 71 18 98 07/10/17 08:00 151/102 (118) 07/08/17 20:47 Room Air Radiology Last [address] Angiography 07/08/17 1653 Signed Impressions: Service Date/Time: Saturday, July 08, 2017 18:16 - CONCLUSION: 1. No evidence for pulmonary embolism. 2. Enlarged right axillary adenopathy Venkat Barroso MD Chest X-Ray 07/08/17 1455 Signed Impressions: Service Date/Time: Saturday, July 08, 2017 15:41 - CONCLUSION: No acute disease. Venkat Barroso MD Cardiovascular: Regular Lungs: Clear Abdomen: Non-distended, Non-tender Extremities: Other Narrative Exam RIGHT axillary--- far less tender on exam than yesterday; decreased redness A/P Assessment and Plan 56 year old female with breast cancer; s/p bilateral mastectomy in Feb 2017; RIGHT axillary tenderness and pain -Transition to PO antibiotics -Regular diet -Pain control -Continue to monitor area; continues to have no area of palpable fluid collection -No acute surgical plans at this time -General Surgery clear for DC -Follow up in the office early-mid next week -Keflex rx on chart Attending Statement I personally evaluated the patient in room 238. Her pain is significantly improved. She still has some residual discomfort in the fat pad above her right axilla anteriorly superior to her mastectomy scar. There still is no fluctuant area no drainable fluid collection is identified. I cannot palpate any axillary lymphadenopathy. I am unsure the etiology of her presentation. Certainly unusual. She has however improved on antibiotics and discharging her on oral antibiotic equivalent is reasonable. I plan to see her back in the office again next week. The exam, history, and the medical decision-making described in the above note were completed with the assistance of the mid-level provider. I reviewed and agree with the findings presented. I attest that I had a [id number] encounter with the patient on the same day, and personally performed and documented my assessment and findings in the medical record. Mari Huerta/[employer] JACOBO Jul 10, 2017 12:28 Nathaniel Winchester MD Jul 11, 2017 15:41
[2017-07-10] MEDS ORDERED: CEPHALEXIN MONOHYDRATE 500 MG CAP PO SCH (14:00)
[2017-07-10] MEDS ORDERED: CLIN300C5 PO (16:22)
--- NOTE | 2017-07-10 16:26 | HHI.DS ---
Discharge Summary Admission Date Jul 08, 2017 at 19:40 Discharge Date: Jul 10, 2017 Admitting Diagnosis Chest pain, leukocytosis (1) Cellulitis of chest wall ICD Code: L03.313 - Cellulitis of chest wall Status: Acute Procedures none Brief History - From Admission 56-year-old female with a past medical history significant for hypertension and breast cancer with lymph node involvement presents to the emergency department for evaluation of her right armpit and chest pain. The patient is currently undergoing radiation treatment and completed #19 yesterday. She reports that starting Friday evening she had pain in her right armpit that radiated to her mid chest. She endorses increased fatigue. She states that yesterday the pain worsened and felt like a pressure. She endorses accompanying shortness of breath. States she is having severe pain on the right side of her chest and in her armpit and her skin has turned erythematous and is exquisitely tender to palpation. She endorses 2 days of fever/chills. No abdominal pain. No nausea/ vomiting/diarrhea. No lateralizing signs/symptoms. CBC/BMP: 07/09/17 0340 07/09/17 0340 Significant Findings Laboratory Tests Test 07/08/17 15:24 07/09/17 03:40 White Blood Count 13.9 TH/MM3 (4.0-11.0) Neutrophils (%) (Auto) 89.0 % (16.0-70.0) 78.7 % (16.0-70.0) Lymphocytes (%) (Auto) 3.2 % (9.0-44.0) Neutrophils # (Auto) 12.4 TH/MM3 (1.8-7.7) Lymphocytes # (Auto) 0.4 TH/MM3 (1.0-4.8) Monocytes # (Auto) 1.1 TH/MM3 (0-0.9) Prothrombin Time 9.3 SEC (9.8-11.6) Activated Partial Thromboplast Time 23.6 SEC (24.3-30.1) Random Glucose 114 MG/DL (74-106) 125 MG/DL (74-106) Troponin I LESS THAN 0.02 NG/ML LESS THAN 0.02 NG/ML Red Blood Count 3.63 MIL/MM3 (4.00-5.30) Hematocrit 32.5 % (35.0-46.0) Monocytes (%) (Auto) 9.1 % (0.0-8.0) Chloride Level 108 MEQ/L (98-107) PE at Discharge GENERAL: This is a well-nourished, well-developed patient, in no apparent distress. CARDIOVASCULAR: Regular rate and regular rhythm without murmurs, gallops, or rubs. RESPIRATORY: Clear to auscultation. Breath sounds equal bilaterally. No wheezes , rales, or rhonchi. GASTROINTESTINAL: Abdomen soft, non-tender, nondistended. Normal, active bowel sounds MUSCULOSKELETAL: Extremities without clubbing, cyanosis, or edema. NEURO: Alert & Oriented x4 to person, place, time, situation. Moves all ext x4 skin; erythema of the right axilla. Hospital Course 56-year-old female undergoing radiation treatments for right side breast cancer. She presented to the ER with swelling and redness on her right axilla, lab work revealed leukocytosis. She was treated successfully with IV clindamycin which reduced pain, redness, leukocytosis within 24 hours. Her chest pain was not cardiogenic. The swelling is much reduced and her pain is well controlled. She is appropriate for discharge home with p.o. clindamycin. She has a follow-up appointment with oncology next week. Pt Condition on Discharge: Good Discharge Disposition: Discharge Home Discharge Time: <= 30 minutes Discharge Instructions DIET: Follow Instructions for: As Tolerated, No Restrictions Speech Therapy-Diet Recommends: Regular Activities you can perform: Regular-No Restrictions Jono Avila MD Jul 10, 2017 16:26
== END 2017-07-10 19:42 | disposition home or self-care (01) ==
LOC: NEPE 14:41 → NEDA 19:40 → NEPFCDU 22:35 → HCIN 07-10 01:56
PROVIDERS: ADMIT Family Medicine; ATTEND Family Medicine
DX: L03.313 Cellulitis of chest wall (principal); C50.911 Malignant neoplasm of unspecified site of right female breast; Z90.13 Acquired absence of bilateral breasts and nipples; D72.829 Elevated white blood cell count, unspecified; I10 Essential (primary) hypertension; R53.83 Other fatigue; R06.02 Shortness of breath; R94.31 Abnormal electrocardiogram [ECG] [EKG]; Z92.3 Personal history of irradiation
CPT/HCPCS: 71046; 71275; 80048; 82550; 82552; 83735; 84484; 85025; 85610; 85730; 93005; 96361; 96365; 96366; 96372; 96375; 96376; 99285; G0378; J1644; J2270; J2405; J7030; Q9967